=== PATIENT | female | born 1935 | race Asian ===

== ENCOUNTER 2022-11-29 23:24 | Inpatient (IN) | payer MEDICARE, OTHER ==
[~2022-11-29] VITALS: Ht 160 cm; Wt 185.1 kg
[2022-11-30] VITALS (13 sets, daily range): BP systolic 107–156; BP diastolic 58–83
[2022-11-30] MEDS ORDERED: IOHEXOL 350 MG/ML 100ML IJ ONE (00:26)
[2022-11-30 00:32] LABS: Albumin 3.4 g/dL (3.4-5.0); BUN/Creatinine Ratio 31.7; Calcium 8.8 mg/dL (8.5-10.1); Potassium 3.6 mmol/L (3.5-5.1)
[2022-11-30 00:35] LABS: Bilirubin, Total 0.4 mg/dL (0.2-1.0)
[2022-11-30 00:56] LABS: Basophils # (auto) 0 10 ^3/uL (0-0.2); Basophils % (auto) 0.1 % (0.0-2.0); Eosinophils # (auto) 0.2 10 ^3/uL (0-0.8); Eosinophils % (auto) 1.3 % (0.0-7.0); Hematocrit 39.4 % (36.0-46.0); Hemoglobin 13.1 g/dL (12.2-16.2); Lymphocytes # (auto) 1.1 10 ^3/uL (0.4-5.4); Mean Corpuscular Hemoglobin 30.2 pg (28.0-32.0); Mean Corpuscular Hgb Conc. 33.3 g/dL (32.0-36.0); Mean Corpuscular Volume 90.8 fL (80.0-100.0); Monocytes # (auto) 0.3 10 ^3/uL (0-1.3); Monocytes % (auto) 2.5 % (0.0-12.0); Neutrophils # (auto) 11.7 10 ^3/uL (1.6-8.6); Neutrophils % (auto) 88.1 % (37.0-80.0); Nucleated Red Blood Cells % 0.1 %; Red Blood Cells 4.34 10^6/uL (4.0-5.20); Red Cell Distribution Width 14.4 % (11.8-14.3); White Blood Cell 13.3 10^3/uL (4.4-10.8)
[2022-11-30] MEDS ORDERED: AZITHROMYCIN 500MG/ 250ML 250 ML IV ONE (01:15)
[2022-11-30] MEDS ORDERED: SODIUM CHLORIDE 0.9% 500 ML IV ONE (01:15)
[2022-11-30] MEDS ORDERED: cefTRIAXone SOD 1,000 MG VL IV ONE (01:15)
[2022-11-30] MEDS ORDERED: DEXTROSE (50%) 50ML SYRG IV PRN (01:45)
[2022-11-30] MEDS ORDERED: DOCUSATE SOD 100 MG CAP PO PRN (01:45)
[2022-11-30] MEDS ORDERED: ONDANSETRON HCL 4 MG/2 ML VIAL IV PRN (01:45)
[2022-11-30] MEDS ORDERED: MORPHINE SULFATE INJ 2 MG/ml SYRG IV PRN ×2 (01:45→02:30)
[2022-11-30] MEDS ORDERED: HYDROcodone-ACET 5/325MG TAB PO PRN (01:45)
[2022-11-30] MEDS ORDERED: ACETAMINOPHEN 325 MG TAB PO PRN (01:45)
[2022-11-30] MEDS ORDERED: ALBUTEROL SULF 2.5 MG/0.5ML(0.5%) NEB SOLN NEB PRN (01:45)
[2022-11-30] MEDS ORDERED: hydrALAZINE HCL 20 MG/ML VL IV PRN (01:45)
[2022-11-30 02:25] LABS: Urine Bacteria NONE SEEN /hpf (None Seen); Urine Blood Negative /uL (Negative); Urine Specific Gravity 1.023 (1.001-1.035); Urine WBC 17 /hpf (0 - 5)
[2022-11-30] MEDS ORDERED: NITROGLYCERIN 0.4 MG SL TAB SL PRN (02:30)
[2022-11-30] MEDS ORDERED: cefTRIAXone 1GM/50ML D5W 50 ML IV ONE (02:45)
[2022-11-30 06:24] LABS: Basophils # (auto) 0.1 10 ^3/uL (0-0.2); Basophils % (auto) 0.8 % (0.0-2.0); Eosinophils # (auto) 0.1 10 ^3/uL (0-0.8); Eosinophils % (auto) 0.9 % (0.0-7.0); Hemoglobin 11.5 g/dL (12.2-16.2); Lymphocytes # (auto) 1.4 10 ^3/uL (0.4-5.4); Lymphocytes % (auto) 13.9 % (10.0-50.0); Mean Corpuscular Hemoglobin 30.3 pg (28.0-32.0); Mean Corpuscular Volume 86.6 fL (80.0-100.0); Monocytes # (auto) 0.5 10 ^3/uL (0-1.3); Monocytes % (auto) 5.5 % (0.0-12.0); Neutrophils # (auto) 7.7 10 ^3/uL (1.6-8.6); Neutrophils % (auto) 78.9 % (37.0-80.0); Red Blood Cells 3.81 10^6/uL (4.0-5.20); Red Cell Distribution Width 14.2 % (11.8-14.3); White Blood Cell 9.8 10^3/uL (4.4-10.8)
[2022-11-30 06:42] LABS: Potassium 3.6 mmol/L (3.5-5.1)
[2022-11-30 06:56] LABS: Albumin 2.8 g/dL (3.4-5.0); BUN/Creatinine Ratio 33.3; Bilirubin, Total 0.3 mg/dL (0.2-1.0); Calcium 7.9 mg/dL (8.5-10.1); Total Protein 6.7 g/dL (6.4-8.2)
[2022-11-30] MEDS ORDERED: ACCU-CHEK COMFORT CURVE STRIP VI SCH (07:00)
[2022-11-30] MEDS ORDERED: InsuLIN REG 1unit/0.01ml Soln (100units/ml) SC SCH ×2 (07:00→22:00)
[2022-11-30] MEDS ORDERED: HEPARIN SODIUM (PORCINE) 5000 UNITS/ML 1ML VIAL IV ONE (07:45)
[2022-11-30] MEDS ORDERED: HEPARIN DRIP/D5W 100UNITS/ML 250 ML IV SCH ×2 (08:00→08:15)
[2022-11-30] MEDS: cefTRIAXone 1GM/50ML D5W 50 ML IV SCH ×2 (08:19→08:20)
[2022-11-30 08:38] LABS: Partial Thromboplastin Time 31.3 sec (24.6-33.4)
[2022-11-30] MEDS ORDERED: ASPirin-EC 81 mg tab PO ONE (09:45)
[2022-11-30] MEDS: ASPirin 81 mg TAB PO SCH (09:46)
[2022-11-30] MEDS ORDERED: HEPARIN SODIUM (PORCINE) 5000 UNITS/ML 1ML VIAL SC SCH (10:00)
[2022-11-30] MEDS ORDERED: ENOXAPARIN SOD 40 MG/0.4 ML SYRINGE SC SCH (10:00)
[2022-11-30] MEDS ORDERED: SODIUM CHLORIDE 0.9% 1,000 ML IV SCH (10:15)
[2022-11-30 10:43] LABS: Magnesium 2.3 mg/dL (1.6-2.6)
[2022-11-30] MEDS ORDERED: ANGIOMAX 250 MG VIAL IV ONE (12:24)
[2022-11-30] MEDS ORDERED: HEPARIN SODIUM (PORCINE) 5000 UNITS/ML 1ML VIAL ONE (12:24)
[2022-11-30] MEDS ORDERED: VERAPAMIL 2.5MG/ML INJ 2ML VIAL IV ONE (12:25)
[2022-11-30] MEDS ORDERED: MIDAZOLAM HCL 2MG/2ML 2ml VIAL (1mg/ml) ONE (12:25)
[2022-11-30] MEDS ORDERED: fentaNYL CITRATE 100 MCG/2 ML VL ONE (12:25)
[2022-11-30] MEDS ORDERED: SODIUM CHL 0.9% 0 ML ONE (12:25)
[2022-11-30] MEDS ORDERED: LIDOCAINE 2%HCL (LOCAL ANESTH.) INJ 10ml MDV ONE (12:29)
[2022-11-30] MEDS: AZITHROMYCIN 500MG/ 250ML 250 ML IV SCH (14:24)
[2022-11-30] MEDS: SODIUM CHLORIDE 0.9% 1,000 ML IV SCH (14:27)
[2022-11-30] MEDS: IPRATROPIUM BROM 0.5 MG/2.5ML INH SOL NEB SCH (20:01)
[2022-11-30] MEDS: ALBUTEROL SULF 2.5 MG/0.5ML(0.5%) NEB SOLN NEB SCH (20:01)
[2022-11-30] MEDS: ATORVASTATIN 20 MG TAB PO SCH (21:54)
[2022-12-01] MEDS: SODIUM CHLORIDE 0.9% 1,000 ML IV SCH ×2 (02:33→09:14)
[2022-12-01 05:00] VITALS: BP 141/76
[2022-12-01 06:14] LABS: Basophils # (auto) 0 10 ^3/uL (0-0.2); Basophils % (auto) 0.4 % (0.0-2.0); Eosinophils # (auto) 0.2 10 ^3/uL (0-0.8); Eosinophils % (auto) 2.2 % (0.0-7.0); Hematocrit 36.2 % (36.0-46.0); Lymphocytes # (auto) 1.3 10 ^3/uL (0.4-5.4); Lymphocytes % (auto) 17.3 % (10.0-50.0); Mean Corpuscular Hgb Conc. 33.3 g/dL (32.0-36.0); Monocytes # (auto) 0.7 10 ^3/uL (0-1.3); Monocytes % (auto) 9.9 % (0.0-12.0); Neutrophils # (auto) 5.3 10 ^3/uL (1.6-8.6); Neutrophils % (auto) 70.2 % (37.0-80.0); Nucleated Red Blood Cells % 0.1 %; Red Blood Cells 4.02 10^6/uL (4.0-5.20); White Blood Cell 7.5 10^3/uL (4.4-10.8)
[2022-12-01] MEDS: ALBUTEROL SULF 2.5 MG/0.5ML(0.5%) NEB SOLN NEB SCH ×3 (06:21→18:55)
[2022-12-01] MEDS: IPRATROPIUM BROM 0.5 MG/2.5ML INH SOL NEB SCH ×3 (06:21→18:55)
[2022-12-01 06:22] LABS: Calcium 8.3 mg/dL (8.5-10.1); Potassium 3.4 mmol/L (3.5-5.1)
[2022-12-01 06:24] LABS: BUN/Creatinine Ratio 24.3
[2022-12-01 06:34] LABS: Bilirubin, Total 0.4 mg/dL (0.2-1.0); Total Protein 6.4 g/dL (6.4-8.2)
[2022-12-01 08:00] VITALS: BP 129/65
[2022-12-01 09:00] VITALS: BP 129/65
[2022-12-01] MEDS: cefTRIAXone 1GM/50ML D5W 50 ML IV SCH (09:14)
[2022-12-01] MEDS: ASPirin 81 mg TAB PO SCH (09:14)
[2022-12-01] MEDS: AZITHROMYCIN 500MG/ 250ML 250 ML IV SCH (10:07)
[2022-12-01 13:00] VITALS: BP 135/76
[2022-12-01] MEDS ORDERED: POTASSIUM CHL 20 Meq TABLET PO ONE (13:15)
[2022-12-01 16:48] VITALS: BP 150/74
[2022-12-01] MEDS: DOXYCYCLINE 100 MG TAB/CAP PO SCH (21:13)
[2022-12-01] MEDS: ATORVASTATIN 20 MG TAB PO SCH (21:14)
[2022-12-01 21:54] VITALS: BP 144/54
[2022-12-02 05:00] VITALS: BP 141/67
[2022-12-02] MEDS: ALBUTEROL SULF 2.5 MG/0.5ML(0.5%) NEB SOLN NEB SCH ×2 (06:14→11:15)
[2022-12-02] MEDS: IPRATROPIUM BROM 0.5 MG/2.5ML INH SOL NEB SCH ×2 (06:14→11:15)
[2022-12-02 09:00] VITALS: BP 140/89
[2022-12-02] MEDS: DOXYCYCLINE 100 MG TAB/CAP PO SCH (11:30)
[2022-12-02] MEDS: ASPirin 81 mg TAB PO SCH (11:30)
[2022-12-02] MEDS: cefTRIAXone 1GM/50ML D5W 50 ML IV SCH (11:30)
[2022-12-02] MEDS ORDERED: ALBUAER3 IN (11:52)
[2022-12-02] MEDS ORDERED: BUDE1AER4 IN (11:52)
[2022-12-02] MEDS ORDERED: DOX100T PO (11:53)
[2022-12-02 13:16] VITALS: BP 140/89
[2022-12-02 13:32] VITALS: BP 149/89
== END 2022-12-02 16:59 | disposition home or self-care (01) | DRG 177 ==
LOC: EDBD 23:24 → ER 23:31 → TELE 11-30 02:19 → TELE-WESTW 11-30 16:45
PROVIDERS: ADMIT Nurse Practitioner Family; ATTEND Nurse Practitioner Acute Care
PROC: 4A023N7 Measurement of Cardiac Sampling and Pressure, Left Heart, Percutaneous Approach (ICD-10-PCS; principal; 2022-11-30)
PROC: B211YZZ Fluoroscopy of Multiple Coronary Arteries using Other Contrast (ICD-10-PCS; 2022-11-30)
PROC: B215YZZ Fluoroscopy of Left Heart using Other Contrast (ICD-10-PCS; 2022-11-30)
PROC: 4A033BC Measurement of Arterial Pressure, Coronary, Percutaneous Approach (ICD-10-PCS; 2022-11-30)
DX: J15.6 Pneumonia due to other Gram-negative bacteria (principal); I21.A1 Myocardial infarction type 2; J96.01 Acute respiratory failure with hypoxia; J44.1 Chronic obstructive pulmonary disease with (acute) exacerbation; E66.9 Obesity, unspecified; E78.5 Hyperlipidemia, unspecified; R00.0 Tachycardia, unspecified; E11.65 Type 2 diabetes mellitus with hyperglycemia; Z20.822 Contact with and (suspected) exposure to COVID-19; E86.0 Dehydration; I10 Essential (primary) hypertension; Z68.31 Body mass index [BMI] 31.0-31.9, adult; Z79.899 Other long term (current) drug therapy; Z87.891 Personal history of nicotine dependence; Z99.81 Dependence on supplemental oxygen
CPT/HCPCS: 36415; 71045; 71275; 80053; 80061; 81001; 83036; 83615; 83735; 83880; 84443; 84484; 85025; 85610; 85730; 87426; 93005; 93306; 93458; 93571; 94640; 96365; 96375; 99152; 99153; G0378; J0696; J2001; J2250

== ENCOUNTER 2023-07-08 15:41 | Inpatient (IN) | payer MEDICARE, OTHER ==
[~2023-07-08] VITALS: Ht 160 cm; Wt 82.0 kg
[~2023-07-08 15:41] MED LIST: ALBUAER3 IN; BUDE1AER4 IN; DOX100T PO
[2023-07-08] MEDS ORDERED: ACETAMINOPHEN 325 MG TAB PO ONE (16:00)
[2023-07-08] MEDS ORDERED: IPRATROPIUM BROM 0.5 MG/2.5ML INH SOL NEB ONE (16:00)
[2023-07-08] MEDS ORDERED: ALBUTEROL SULF 2.5 MG/0.5ML(0.5%) NEB SOLN NEB ONE (16:00)
[2023-07-08] MEDS ORDERED: methylPREDNISolone SOD SUCC 125 MG/2 ML VL IV ONE (16:00)
[2023-07-08 16:16] LABS: Basophils # (auto) 0.1 10 ^3/uL (0-0.2); Basophils % (auto) 0.4 % (0.0-2.0); Eosinophils # (auto) 0.4 10 ^3/uL (0-0.8); Eosinophils % (auto) 2.7 % (0.0-7.0); Hematocrit 39.8 % (36.0-46.0); Hemoglobin 13.2 g/dL (12.2-16.2); Lymphocytes # (auto) 1.2 10 ^3/uL (0.4-5.4); Lymphocytes % (auto) 8.1 % (10.0-50.0); Mean Corpuscular Hgb Conc. 33.3 g/dL (32.0-36.0); Mean Corpuscular Volume 90.2 fL (80.0-100.0); Monocytes # (auto) 0.7 10 ^3/uL (0-1.3); Monocytes % (auto) 4.5 % (0.0-12.0); Neutrophils # (auto) 12.5 10 ^3/uL (1.6-8.6); Neutrophils % (auto) 84.3 % (37.0-80.0); Red Blood Cells 4.41 10^6/uL (4.0-5.20); Red Cell Distribution Width 13.9 % (11.8-14.3); White Blood Cell 14.8 10^3/uL (4.4-10.8)
[2023-07-08 16:37] LABS: Albumin 4.3 g/dL (3.2-4.8); Alkaline Phosphatase 106 U/L (46-116); Anion Gap 8 (5-15); Aspartate Aminotransferase < 8 U/L (13-40); BUN/Creatinine Ratio 17.1 (10.0-20.0); Bilirubin, Total 0.7 mg/dL (0.2-1.0); Blood Urea Nitrogen 14 mg/dL (9-23); Calcium 8.9 mg/dL (8.7-10.4); Carbon Dioxide 26 mmol/L (20-30); Chloride 105 mmol/L (98-107); Glucose 114 mg/dL (74-106); Magnesium 1.8 mg/dL (1.6-2.6); Potassium 3.7 mmol/L (3.5-5.1); Sodium 139 mmol/L (136-145)
[2023-07-08 16:38] LABS: Alanine Aminotransferase < 9 U/L (7-40); Total Protein 7.6 g/dL (5.7-8.2)
[2023-07-08] MEDS ORDERED: SODIUM CHLORIDE 0.9% 1,000 ML IV ONE (17:00)
[2023-07-08] MEDS ORDERED: cefTRIAXone 1GM/50ML D5W 50 ML IV ONE (17:15)
[2023-07-08 17:18] VITALS: PULSE 104; RESP 22; O2SAT 90
[2023-07-08] MEDS ORDERED: IOHEXOL 350 MG/ML 100ML IJ ONE (18:16)
[2023-07-08 18:32] LABS: Urine Bacteria NONE SEEN /hpf (None Seen); Urine Blood Negative /uL (Negative); Urine Clarity Clear (Clear); Urine Color Colorless (Yellow); Urine Protein, UAD 1+ (Negative); Urine Specific Gravity 1.013 (1.001-1.035); Urine Urobilinogen Normal (Negative); Urine WBC 2 /hpf (0 - 5); Urine pH 7.5 (5.0-8.0)
[2023-07-08] MEDS ORDERED: METF-370 PO (18:43)
[2023-07-08] MEDS ORDERED: NISO17TA PO (18:43)
[2023-07-08] MEDS ORDERED: TIOT1AER2 INH (18:43)
[2023-07-08] MEDS ORDERED: TELM1TAB35 PO (18:43)
[2023-07-08] MEDS ORDERED: SIMV40TA18 PO (18:43)
[2023-07-08] MEDS ORDERED: guaiFENesin 200 MG/10 ML UD GT PRN (18:45)
[2023-07-08] MEDS ORDERED: MORPHINE SULFATE INJ 2 MG/ml SYRG IV PRN (18:45)
[2023-07-08] MEDS ORDERED: ACETAMINOPHEN 325 MG TAB PO PRN (18:45)
[2023-07-08] MEDS ORDERED: DEXTROSE (50%) 50ML SYRG IV PRN (18:45)
[2023-07-08] MEDS ORDERED: NITROGLYCERIN 0.4 MG SL TAB SL PRN (18:45)
[2023-07-08] MEDS ORDERED: ONDANSETRON HCL 4 MG/2 ML VIAL IV PRN (18:45)
[2023-07-08 18:49] VITALS: BP 165/85; PULSE 104; RESP 20; TEMP 99.3; O2SAT 94
[2023-07-08 19:04] LABS: COVID19 ANTIGEN SOFIA FIA NEGATIVE (NEGATIVE); Rapid Influenza A Negative (Negative); Rapid Influenza B Negative (Negative)
[2023-07-08 19:40] VITALS: PULSE 94; RESP 16; O2SAT 94
[2023-07-08] MEDS: ACCU-CHEK COMFORT CURVE STRIP VI SCH (21:38)
[2023-07-08] MEDS: InsuLIN REG 1unit/0.01ml Soln (100units/ml) SC SCH (22:31)
[2023-07-08] MEDS: ATORVASTATIN 20 MG TAB PO SCH (22:32)
[2023-07-08] MEDS: methylPREDNISolone SOD SUCC 40 MG/ML VL IV SCH (22:32)
[2023-07-09] VITALS (13 sets, daily range): BP systolic 150; BP diastolic 71; PULSE 80–91; RESP 16–20; TEMP 98.4; O2SAT 92–99
[2023-07-09] MEDS: LEVALBUTEROL HCL 1.25 MG/3 ML NEB NEB SCH ×4 (00:39→18:17)
[2023-07-09 06:07] LABS: Basophils # (auto) 0 10 ^3/uL (0-0.2); Basophils % (auto) 0.2 % (0.0-2.0); Eosinophils # (auto) 0 10 ^3/uL (0-0.8); Hematocrit 36.5 % (36.0-46.0); Hemoglobin 12.3 g/dL (12.2-16.2); Mean Corpuscular Hemoglobin 30.7 pg (28.0-32.0); Mean Corpuscular Hgb Conc. 33.8 g/dL (32.0-36.0); Mean Corpuscular Volume 90.8 fL (80.0-100.0); Monocytes # (auto) 0.1 10 ^3/uL (0-1.3); Monocytes % (auto) 0.7 % (0.0-12.0); Neutrophils # (auto) 8.3 10 ^3/uL (1.6-8.6); Neutrophils % (auto) 88.1 % (37.0-80.0); Nucleated Red Blood Cells % 0.1 %; Red Blood Cells 4.02 10^6/uL (4.0-5.20); White Blood Cell 9.5 10^3/uL (4.4-10.8)
[2023-07-09 06:10] LABS: Albumin 3.9 g/dL (3.2-4.8); Alkaline Phosphatase 87 U/L (46-116); Anion Gap 11 (5-15); Aspartate Aminotransferase < 8 U/L (13-40); BUN/Creatinine Ratio 17.4 (10.0-20.0); Bilirubin, Total 0.4 mg/dL (0.2-1.0); Blood Urea Nitrogen 15 mg/dL (9-23); Calcium 8.5 mg/dL (8.5-10.1); Carbon Dioxide 24 mmol/L (20-30); Chloride 106 mmol/L (98-107); Glucose 168 mg/dL (74-106); Potassium 3.6 mmol/L (3.5-5.1); Sodium 141 mmol/L (136-145); Total Protein 7.1 g/dL (5.7-8.2)
[2023-07-09 06:14] LABS: Alanine Aminotransferase < 9 U/L (7-40)
[2023-07-09] MEDS: IPRATROPIUM BROM 0.5 MG/2.5ML INH SOL NEB SCH ×3 (06:36→18:17)
[2023-07-09] MEDS: ACCU-CHEK COMFORT CURVE STRIP VI SCH ×4 (07:06→22:44)
[2023-07-09] MEDS: InsuLIN REG 1unit/0.01ml Soln (100units/ml) SC SCH ×4 (07:06→22:39)
[2023-07-09] MEDS: cefTRIAXone 1GM/50ML D5W 50 ML IV SCH (08:50)
[2023-07-09] MEDS: NISOLDIPINE 17 MG PO SCH (09:42)
[2023-07-09] MEDS: PANTOPRAZOLE 40 MG TAB PO SCH (09:46)
[2023-07-09] MEDS: methylPREDNISolone SOD SUCC 40 MG/ML VL IV SCH ×2 (09:46→22:44)
[2023-07-09] MEDS: AZITHROMYCIN 500MG/ 250ML 250 ML IV SCH (09:46)
[2023-07-09] MEDS: LOSARTAN POTASSIUM 50 MG TAB PO SCH (09:54)
[2023-07-09] MEDS ORDERED: LOSARTAN POTASSIUM 50 MG TAB PO SCH (10:00)
[2023-07-09] MEDS: ATORVASTATIN 20 MG TAB PO SCH (23:03)
[2023-07-10] VITALS (13 sets, daily range): BP systolic 117–175; BP diastolic 54–92; PULSE 62–91; RESP 16–20; TEMP 97.5–98.2; O2SAT 91–100
[2023-07-10] MEDS: hydrALAZINE HCL 20 MG/ML VL IV PRN ×2 (05:34→12:18)
[2023-07-10] MEDS: InsuLIN REG 1unit/0.01ml Soln (100units/ml) SC SCH ×4 (06:16→22:38)
[2023-07-10] MEDS: DOCUSATE SOD 100 MG CAP PO PRN (06:30)
[2023-07-10] MEDS: ACCU-CHEK COMFORT CURVE STRIP VI SCH ×4 (06:43→22:51)
[2023-07-10] MEDS: IPRATROPIUM BROM 0.5 MG/2.5ML INH SOL NEB SCH ×3 (06:53→18:53)
[2023-07-10] MEDS: LEVALBUTEROL HCL 1.25 MG/3 ML NEB NEB SCH ×3 (06:54→18:54)
[2023-07-10 07:20] LABS: Basophils # (auto) 0 10 ^3/uL (0-0.2); Eosinophils # (auto) 0 10 ^3/uL (0-0.8); Hematocrit 38.3 % (36.0-46.0); Hemoglobin 12.4 g/dL (12.2-16.2); Lymphocytes # (auto) 1.2 10 ^3/uL (0.4-5.4); Lymphocytes % (auto) 7.6 % (10.0-50.0); Mean Corpuscular Hemoglobin 29.9 pg (28.0-32.0); Mean Corpuscular Hgb Conc. 32.3 g/dL (32.0-36.0); Mean Corpuscular Volume 92.6 fL (80.0-100.0); Monocytes # (auto) 0.2 10 ^3/uL (0-1.3); Monocytes % (auto) 1.5 % (0.0-12.0); Neutrophils # (auto) 14.2 10 ^3/uL (1.6-8.6); Neutrophils % (auto) 90.9 % (37.0-80.0); Red Blood Cells 4.13 10^6/uL (4.0-5.20); Red Cell Distribution Width 14.1 % (11.8-14.3); White Blood Cell 15.6 10^3/uL (4.4-10.8)
[2023-07-10 07:43] LABS: Anion Gap 9 (5-15); Carbon Dioxide 23 mmol/L (20-30); Chloride 108 mmol/L (98-107); Potassium 4.1 mmol/L (3.5-5.1); Sodium 140 mmol/L (136-145)
[2023-07-10 07:44] LABS: Calcium 8.8 mg/dL (8.5-10.1)
[2023-07-10 07:49] LABS: BUN/Creatinine Ratio 19.1 (10.0-20.0); Blood Urea Nitrogen 17 mg/dL (9-23); Glucose 183 mg/dL (74-106)
[2023-07-10] MEDS: methylPREDNISolone SOD SUCC 40 MG/ML VL IV SCH ×2 (09:33→22:45)
[2023-07-10] MEDS: cefTRIAXone 1GM/50ML D5W 50 ML IV SCH (09:33)
[2023-07-10] MEDS: ENOXAPARIN SOD 40 MG/0.4 ML SYRINGE SC SCH (09:33)
[2023-07-10] MEDS: LOSARTAN POTASSIUM 50 MG TAB PO SCH (09:34)
[2023-07-10] MEDS: PANTOPRAZOLE 40 MG TAB PO SCH (09:34)
[2023-07-10] MEDS: AZITHROMYCIN 500MG/ 250ML 250 ML IV SCH (10:56)
[2023-07-10] MEDS ORDERED: levoFLOXacin 500 MG TAB PO ONE (14:45)
[2023-07-10] MEDS ORDERED: IOHEXOL 300 MG/ML 100ML BOTTLE IJ ONE (14:50)
[2023-07-10] MEDS: NISOLDIPINE 17 MG PO SCH (18:27)
[2023-07-10] MEDS: ATORVASTATIN 20 MG TAB PO SCH (22:42)
[2023-07-11] VITALS (14 sets, daily range): BP systolic 136–173; BP diastolic 66–88; PULSE 72–100; RESP 16–20; TEMP 98.1–98.8; O2SAT 90–100
[2023-07-11] MEDS: InsuLIN REG 1unit/0.01ml Soln (100units/ml) SC SCH ×4 (06:28→22:29)
[2023-07-11] MEDS: ACCU-CHEK COMFORT CURVE STRIP VI SCH ×4 (06:34→22:20)
[2023-07-11] MEDS: IPRATROPIUM BROM 0.5 MG/2.5ML INH SOL NEB SCH ×3 (08:08→18:54)
[2023-07-11] MEDS: LEVALBUTEROL HCL 1.25 MG/3 ML NEB NEB SCH ×3 (08:08→18:54)
[2023-07-11] MEDS: NISOLDIPINE 17 MG PO SCH (10:00)
[2023-07-11] MEDS: methylPREDNISolone SOD SUCC 40 MG/ML VL IV SCH ×2 (10:36→22:20)
[2023-07-11] MEDS: ENOXAPARIN SOD 40 MG/0.4 ML SYRINGE SC SCH (10:36)
[2023-07-11] MEDS: PANTOPRAZOLE 40 MG TAB PO SCH (10:37)
[2023-07-11] MEDS: levoFLOXacin 250 MG TAB PO SCH (10:37)
[2023-07-11] MEDS: LOSARTAN POTASSIUM 50 MG TAB PO SCH (10:38)
[2023-07-11] MEDS: guaiFENesin 200 MG/10 ML UD PO PRN ×2 (11:38→20:37)
[2023-07-11 14:01] LABS: Base Excess -1.1 mmol/L (-2.0-2.0)
[2023-07-11] MEDS: DOCUSATE SOD 100 MG CAP PO PRN (20:37)
[2023-07-11] MEDS: ATORVASTATIN 20 MG TAB PO SCH (22:20)
[2023-07-11] MEDS: hydrALAZINE HCL 20 MG/ML VL IV PRN (23:35)
[2023-07-12] VITALS (15 sets, daily range): BP systolic 124–165; BP diastolic 80–96; PULSE 80–111; RESP 14–20; TEMP 97.8–98.3; O2SAT 90–100
[2023-07-12] MEDS: guaiFENesin 200 MG/10 ML UD PO PRN ×2 (03:27→10:45)
[2023-07-12] MEDS: LEVALBUTEROL HCL 1.25 MG/3 ML NEB NEB SCH ×3 (06:04→18:17)
[2023-07-12] MEDS: IPRATROPIUM BROM 0.5 MG/2.5ML INH SOL NEB SCH ×3 (06:04→18:17)
[2023-07-12] MEDS: ACCU-CHEK COMFORT CURVE STRIP VI SCH ×4 (06:39→22:08)
[2023-07-12] MEDS: InsuLIN REG 1unit/0.01ml Soln (100units/ml) SC SCH ×4 (06:41→22:11)
[2023-07-12 08:48] LABS: INR 0.93 (0.9-1.15); Partial Thromboplastin Time 20.2 SEC (24.5-34.5); Prothrombin Time 9.8 sec (9.3-11.8)
[2023-07-12 09:16] LABS: Hepatitis B Surface Antigen Negative (Negative)
[2023-07-12 09:38] LABS: Hepatitis C Antibody Negative (Negative)
[2023-07-12] MEDS: ENOXAPARIN SOD 40 MG/0.4 ML SYRINGE SC SCH (10:00)
[2023-07-12] MEDS: NISOLDIPINE 17 MG PO SCH (10:00)
[2023-07-12] MEDS: methylPREDNISolone SOD SUCC 40 MG/ML VL IV SCH ×2 (10:42→22:09)
[2023-07-12] MEDS: levoFLOXacin 250 MG TAB PO SCH (10:44)
[2023-07-12] MEDS: hydrALAZINE HCL 20 MG/ML VL IV PRN (10:44)
[2023-07-12] MEDS: LOSARTAN POTASSIUM 50 MG TAB PO SCH (10:44)
[2023-07-12] MEDS: PANTOPRAZOLE 40 MG TAB PO SCH (10:44)
[2023-07-12] MEDS ORDERED: LIDOCAINE 2%HCL (LOCAL ANESTH.) INJ 10ml MDV ONE (10:51)
[2023-07-12] MEDS ORDERED: MIDAZOLAM HCL 2MG/2ML 2ml VIAL (1mg/ml) ONE (10:56)
[2023-07-12] MEDS ORDERED: fentaNYL CITRATE 100 MCG/2 ML VL ONE (10:56)
[2023-07-12] MEDS ORDERED: FLUMAZENIL 0.1 MG/ML INJ 10ML MDV IV ONE (10:56)
[2023-07-12] MEDS ORDERED: NALOXONE HCL 1MG/ML 2ML SYRINGE ONE (10:56)
[2023-07-12] MEDS ORDERED: guaiFENesin-DM 100/10mg/5ml SYR PO SCH (14:00)
[2023-07-12] MEDS: DOCUSATE SOD 100 MG CAP PO PRN (22:07)
[2023-07-12] MEDS: ATORVASTATIN 20 MG TAB PO SCH (22:07)
[2023-07-13] VITALS (9 sets, daily range): BP systolic 125–163; BP diastolic 75–88; PULSE 78–103; RESP 16–20; TEMP 97.4–98.2; O2SAT 91–98
[2023-07-13] MEDS: ACCU-CHEK COMFORT CURVE STRIP VI SCH ×2 (05:56→11:30)
[2023-07-13] MEDS: InsuLIN REG 1unit/0.01ml Soln (100units/ml) SC SCH ×2 (05:57→11:38)
[2023-07-13] MEDS: hydrALAZINE HCL 20 MG/ML VL IV PRN (06:06)
[2023-07-13 06:16] LABS: Chloride 107 mmol/L (98-107); Potassium 4.1 mmol/L (3.5-5.1); Sodium 139 mmol/L (136-145)
[2023-07-13 06:17] LABS: Anion Gap 9 (5-15); Carbon Dioxide 23 mmol/L (20-30)
[2023-07-13 06:18] LABS: Calcium 8.7 mg/dL (8.7-10.4)
[2023-07-13 06:22] LABS: Glucose 177 mg/dL (74-106)
[2023-07-13 06:23] LABS: BUN/Creatinine Ratio 23.5 (10.0-20.0); Blood Urea Nitrogen 24 mg/dL (9-23)
[2023-07-13 06:38] LABS: Basophils # (auto) 0 10 ^3/uL (0-0.2); Basophils % (auto) 0.1 % (0.0-2.0); Eosinophils # (auto) 0 10 ^3/uL (0-0.8); Hematocrit 40.5 % (36.0-46.0); Hemoglobin 13.1 g/dL (12.2-16.2); Lymphocytes # (auto) 1.5 10 ^3/uL (0.4-5.4); Lymphocytes % (auto) 12.7 % (10.0-50.0); Mean Corpuscular Hemoglobin 29.6 pg (28.0-32.0); Mean Corpuscular Hgb Conc. 32.4 g/dL (32.0-36.0); Mean Corpuscular Volume 91.3 fL (80.0-100.0); Monocytes # (auto) 0.4 10 ^3/uL (0-1.3); Monocytes % (auto) 3.7 % (0.0-12.0); Neutrophils # (auto) 9.7 10 ^3/uL (1.6-8.6); Neutrophils % (auto) 83.5 % (37.0-80.0); Red Blood Cells 4.44 10^6/uL (4.0-5.20); Red Cell Distribution Width 14.1 % (11.8-14.3); White Blood Cell 11.6 10^3/uL (4.4-10.8)
[2023-07-13] MEDS: LEVALBUTEROL HCL 1.25 MG/3 ML NEB NEB SCH ×2 (07:33→12:16)
[2023-07-13] MEDS: IPRATROPIUM BROM 0.5 MG/2.5ML INH SOL NEB SCH ×2 (07:33→12:16)
[2023-07-13] MEDS: PANTOPRAZOLE 40 MG TAB PO SCH (09:31)
[2023-07-13] MEDS: methylPREDNISolone SOD SUCC 40 MG/ML VL IV SCH (09:31)
[2023-07-13] MEDS: ENOXAPARIN SOD 40 MG/0.4 ML SYRINGE SC SCH (09:31)
[2023-07-13] MEDS: levoFLOXacin 250 MG TAB PO SCH (09:31)
[2023-07-13] MEDS: LOSARTAN POTASSIUM 50 MG TAB PO SCH (09:31)
[2023-07-13] MEDS: NISOLDIPINE 17 MG PO SCH (09:35)
[2023-07-13] MEDS: guaiFENesin 200 MG/10 ML UD PO PRN (11:36)
[2023-07-13] MEDS ORDERED: LEVO750T8 PO (12:55)
== END 2023-07-13 14:00 | disposition home or self-care (01) | DRG 177 ==
LOC: EDBD 15:41 → ER 15:41 → TELE 18:40 → TELE-CENTR 07-09 17:35
PROVIDERS: ADMIT Nurse Practitioner Family; ATTEND Internal Medicine Pulmonary Disease
PROC: 0BBF3ZX Excision of Right Lower Lung Lobe, Percutaneous Approach, Diagnostic (ICD-10-PCS; principal; 2023-07-12)
DX: J15.69 Pneumonia due to other Gram-negative bacteria (principal); J96.01 Acute respiratory failure with hypoxia; J44.1 Chronic obstructive pulmonary disease with (acute) exacerbation; J98.11 Atelectasis; J44.0 Chronic obstructive pulmonary disease with (acute) lower respiratory infection; J15.9 Unspecified bacterial pneumonia; I10 Essential (primary) hypertension; E11.9 Type 2 diabetes mellitus without complications; E78.5 Hyperlipidemia, unspecified; Z20.822 Contact with and (suspected) exposure to COVID-19; D72.829 Elevated white blood cell count, unspecified; Z87.891 Personal history of nicotine dependence; Z88.1 Allergy status to other antibiotic agents; Z82.0 Family history of epilepsy and other diseases of the nervous system; Z80.6 Family history of leukemia
CPT/HCPCS: 10005; 36415; 36600; 71045; 71250; 71275; 74177; 77012; 80048; 80053; 81001; 82805; 82962; 83605; 83735; 83880; 84484; 85025; 85379; 85610; 85730; 86803; 87040; 87081; 87340; 87426; 87804; 93005; 93971; 94640; 96365; 96375; G0378; J0696; J1815; J2001; J2250

== ENCOUNTER 2023-09-04 17:43 | Emergency (ER) | payer MEDICARE, OTHER ==
[~2023-09-04] VITALS: Ht 157.5 cm; Wt 68.0 kg
[~2023-09-04 17:43] MED LIST changes: -DOX100T PO; +LEVO750T8 PO; +METF-370 PO; +NISO17TA PO; +SIMV40TA18 PO; +TELM1TAB35 PO; +TIOT1AER2 INH
[2023-09-04] MEDS ORDERED: METOPROLOL TARTRATE 25 MG TAB PO ONE (18:00)
[2023-09-04] MEDS ORDERED: MORPHINE SULFATE INJ 2 MG/ml SYRG IM ONE (18:00)
[2023-09-04] MEDS ORDERED: ONDANSETRON ODT 4 MG TAB PO ONE (18:00)
[2023-09-04 18:35] LABS: Basophils # (auto) 0.1 10 ^3/uL (0-0.2); Basophils % (auto) 0.4 % (0.0-2.0); Eosinophils # (auto) 0.2 10 ^3/uL (0-0.8); Eosinophils % (auto) 1.1 % (0.0-7.0); Hematocrit 42.9 % (36.0-46.0); Hemoglobin 13.7 g/dL (12.2-16.2); Lymphocytes # (auto) 2.3 10 ^3/uL (0.4-5.4); Lymphocytes % (auto) 16.3 % (10.0-50.0); Mean Corpuscular Hemoglobin 29.1 pg (28.0-32.0); Mean Corpuscular Hgb Conc. 31.8 g/dL (32.0-36.0); Mean Corpuscular Volume 91.4 fL (80.0-100.0); Monocytes # (auto) 0.6 10 ^3/uL (0-1.3); Monocytes % (auto) 4.6 % (0.0-12.0); Neutrophils # (auto) 10.9 10 ^3/uL (1.6-8.6); Neutrophils % (auto) 77.6 % (37.0-80.0); Nucleated Red Blood Cells % 0.1 %; Red Cell Distribution Width 13.8 % (11.8-14.3); White Blood Cell 14.1 10^3/uL (4.4-10.8)
[2023-09-04] MEDS ORDERED: METOPROLOL TARTRATE 25 MG TAB ONE (18:44)
[2023-09-04] MEDS ORDERED: ONDANSETRON ODT 4 MG TAB ONE (18:45)
[2023-09-04] MEDS ORDERED: MORPHINE SULFATE INJ 2 MG/ml SYRG ONE (18:46)
[2023-09-04 18:56] LABS: Albumin 4.7 g/dL (3.2-4.8); Alkaline Phosphatase 91 U/L (46-116); Anion Gap 9 (5-15); Aspartate Aminotransferase 16 U/L (13-40); BUN/Creatinine Ratio 14.1 (10.0-20.0); Blood Urea Nitrogen 13 mg/dL (9-23); Calcium 9.3 mg/dL (8.7-10.4); Carbon Dioxide 25 mmol/L (20-30); Chloride 106 mmol/L (98-107); Glucose 154 mg/dL (74-106); Potassium 4.2 mmol/L (3.5-5.1); Sodium 140 mmol/L (136-145)
[2023-09-04 18:57] LABS: Bilirubin, Total 0.6 mg/dL (0.2-1.0); Total Protein 8.4 g/dL (5.7-8.2)
[2023-09-04 19:01] LABS: Alanine Aminotransferase < 9 U/L (7-40)
[2023-09-05] MEDS ORDERED: HYDROcodone-ACET 10/325MG TAB PO ONE (01:45)
[2023-09-05 02:48] LABS: Urine Bacteria NONE SEEN /hpf (None Seen); Urine Blood Negative /uL (Negative); Urine Clarity HAZY (Clear); Urine Color Yellow (Yellow); Urine Hyaline Cast FEW /lpf (0 - 2); Urine Protein, UAD 2+ (Negative); Urine Specific Gravity 1.016 (1.001-1.035); Urine Urobilinogen Normal (Negative); Urine WBC 5 /hpf (0 - 5)
[2023-09-05] MEDS ORDERED: IBUP1TAB5 PO (03:01)
[2023-09-05 03:58] VITALS: BP 166/87; PULSE 79; RESP 17; TEMP 97.8; O2SAT 94
[2023-09-05] MEDS ORDERED: ONDANSETRON ODT 4 MG TAB PO ONE (04:00)
== END 2023-09-05 04:00 | disposition home or self-care (01) ==
LOC: ER 17:43 → EDBD 17:43 → ER 09-05 04:00
DX: M54.9 Dorsalgia, unspecified (principal); R07.89 Other chest pain; Z88.1 Allergy status to other antibiotic agents
CPT/HCPCS: 36415; 71045; 72128; 80053; 81001; 83690; 84484; 85025; 93005; 96372; 99285; J2270; Q0162

== ENCOUNTER 2023-09-13 18:41 | Inpatient (IN) | payer MEDICARE, OTHER ==
[~2023-09-13] VITALS: Ht 162.6 cm; Wt 78.0 kg
[~2023-09-13 18:41] MED LIST changes: +IBUP1TAB5 PO
[2023-09-13] MEDS ORDERED: IPRATROPIUM BROM 0.5 MG/2.5ML INH SOL NEB ONE (20:00)
[2023-09-13] MEDS ORDERED: ALBUTEROL SULF 2.5 MG/0.5ML(0.5%) NEB SOLN NEB ONE (20:00)
[2023-09-13] MEDS ORDERED: ACETAMINOPHEN 325 MG TAB PO ONE (20:00)
[2023-09-13 20:19] LABS: Basophils # (auto) 0 10 ^3/uL (0-0.2); Basophils % (auto) 0.3 % (0.0-2.0); Eosinophils # (auto) 0.3 10 ^3/uL (0-0.8); Eosinophils % (auto) 2.8 % (0.0-7.0); Hematocrit 37.5 % (36.0-46.0); Hemoglobin 12.2 g/dL (12.2-16.2); Lymphocytes # (auto) 1.1 10 ^3/uL (0.4-5.4); Lymphocytes % (auto) 10.5 % (10.0-50.0); Mean Corpuscular Hemoglobin 29.5 pg (28.0-32.0); Mean Corpuscular Hgb Conc. 32.5 g/dL (32.0-36.0); Mean Corpuscular Volume 90.5 fL (80.0-100.0); Monocytes # (auto) 0.9 10 ^3/uL (0-1.3); Monocytes % (auto) 8.6 % (0.0-12.0); Neutrophils # (auto) 7.9 10 ^3/uL (1.6-8.6); Neutrophils % (auto) 77.8 % (37.0-80.0); Red Blood Cells 4.15 10^6/uL (4.0-5.20); Red Cell Distribution Width 14.1 % (11.8-14.3); White Blood Cell 10.2 10^3/uL (4.4-10.8)
[2023-09-13 20:37] LABS: Alanine Aminotransferase 51 U/L (7-40); Albumin 4.1 g/dL (3.2-4.8); Alkaline Phosphatase 277 U/L (46-116); Anion Gap 10 (5-15); Aspartate Aminotransferase 38 U/L (13-40); BUN/Creatinine Ratio 26.3 (10.0-20.0); Blood Urea Nitrogen 21 mg/dL (9-23); Calcium 8.6 mg/dL (8.7-10.4); Carbon Dioxide 21 mmol/L (20-30); Chloride 108 mmol/L (98-107); Glucose 122 mg/dL (74-106); Magnesium 1.8 mg/dL (1.6-2.6); Potassium 3.6 mmol/L (3.5-5.1); Sodium 139 mmol/L (136-145)
[2023-09-13 20:38] LABS: Bilirubin, Total 0.5 mg/dL (0.2-1.0); Total Protein 7.3 g/dL (5.7-8.2)
[2023-09-13 20:39] LABS: INR 0.95 (0.9-1.15); Partial Thromboplastin Time 32.3 SEC (24.5-34.5)
[2023-09-13 22:22] LABS: Urine Bacteria FEW /hpf (None Seen); Urine Blood Negative /uL (Negative); Urine Clarity HAZY (Clear); Urine Color Colorless (Yellow); Urine Mucus FEW (None Seen); Urine Protein, UAD 1+ (Negative); Urine Specific Gravity 1.015 (1.001-1.035); Urine Urobilinogen Normal (Negative); Urine WBC 74 /hpf (0 - 5); Urine pH 6.5 (5.0-8.0)
[2023-09-14] VITALS (8 sets, daily range): BP systolic 171; BP diastolic 70; PULSE 91–108; RESP 14–22; TEMP 98.2; O2SAT 92–100
[2023-09-14] MEDS ORDERED: AZITHROMYCIN 500MG/ 250ML 250 ML IV ONE (01:45)
[2023-09-14] MEDS ORDERED: cefTRIAXone 1GM/50ML D5W 50 ML IV ONE (01:45)
[2023-09-14] MEDS ORDERED: HYDROcodone-ACET 5/325MG TAB PO PRN (03:15)
[2023-09-14] MEDS ORDERED: DOCUSATE SOD 100 MG CAP PO PRN (03:15)
[2023-09-14] MEDS ORDERED: ACETAMINOPHEN 325 MG TAB PO PRN (03:15)
[2023-09-14] MEDS ORDERED: hydrALAZINE HCL 20 MG/ML VL IV PRN (03:15)
[2023-09-14] MEDS ORDERED: ONDANSETRON HCL 4 MG/2 ML VIAL IV PRN (03:15)
[2023-09-14] MEDS ORDERED: IOHEXOL 350 MG/ML 100ML IJ ONE (03:47)
[2023-09-14] MEDS ORDERED: SODIUM CHLOR 0.9% PF (SALINE LOCK) 10ML VIAL/SYR IV SCH (06:00)
[2023-09-14] MEDS: IPRATROPIUM BROM 0.5 MG/2.5ML INH SOL NEB SCH ×2 (06:31→12:00)
[2023-09-14] MEDS: ALBUTEROL SULF 2.5 MG/0.5ML(0.5%) NEB SOLN NEB SCH ×2 (06:31→12:00)
[2023-09-14] MEDS ORDERED: ENOXAPARIN SOD 40 MG/0.4 ML SYRINGE SC SCH (10:00)
[2023-09-14] MEDS ORDERED: IPRATROPIUM BROM 0.5 MG/2.5ML INH SOL NEB SCH (18:00)
[2023-09-14] MEDS ORDERED: ALBUTEROL SULF 2.5 MG/0.5ML(0.5%) NEB SOLN NEB SCH (18:00)
[2023-09-15] MEDS ORDERED: cefTRIAXone 1GM/50ML D5W 50 ML IV SCH (10:00)
[2023-09-15] MEDS ORDERED: AZITHROMYCIN 500MG/ 250ML 250 ML IV SCH (10:00)
[2023-10-05] MEDS ORDERED: ATOR20TA50 PO (23:23)
[2023-10-05] MEDS ORDERED: AMLO1TAB22 PO (23:25)
[2023-10-05] MEDS ORDERED: HYDR-4296 PO (23:26)
[2023-10-06] MEDS ORDERED: HYDR25TA4 PO (05:06)
[2023-10-06] MEDS ORDERED: CARV12.544 PO (05:07)
[2023-10-08] MEDS ORDERED: PRED20TA2 PO (11:55)
[2023-10-08] MEDS ORDERED: DOXY-447 PO (11:55)
== END 2023-09-14 08:30 | disposition short-term general hospital (02) | DRG 299 ==
LOC: ER 18:41 → OVERFLOW 09-14 03:02
PROVIDERS: ADMIT Internal Medicine; ATTEND Internal Medicine
DX: I71.03 Dissection of thoracoabdominal aorta (principal); J18.9 Pneumonia, unspecified organism; J44.0 Chronic obstructive pulmonary disease with (acute) lower respiratory infection; N39.0 Urinary tract infection, site not specified; I10 Essential (primary) hypertension; Z85.118 Personal history of other malignant neoplasm of bronchus and lung; Z88.1 Allergy status to other antibiotic agents; Z87.891 Personal history of nicotine dependence
CPT/HCPCS: 36415; 71045; 71250; 74176; 80053; 81001; 83605; 83735; 83880; 84443; 84484; 85025; 85610; 85730; 87040; 87077; 87086; 87088; 87186; 93005; 94640; 96365; 96367; 99291; G0378

== ENCOUNTER 2024-03-07 18:37 | Inpatient (IN) | payer MEDICARE, OTHER ==
[~2024-03-07] VITALS: Ht 167.6 cm; Wt 67.9 kg
[~2024-03-07 18:37] MED LIST changes: +AMLO1TAB22 PO; +ATOR20TA50 PO; +CARV12.544 PO; +DOXY-447 PO; +HYDR25TA4 PO; +HYDR25TA88 PO; -LEVO750T8 PO; -NISO17TA PO; +PRED20TA2 PO; -SIMV40TA18 PO; -TELM1TAB35 PO
[2024-03-07 20:05] LABS: Hemoglobin 9.2 g/dL (12.2-16.2); Red Cell Distribution Width 16.9 % (11.8-14.3)
[2024-03-07 20:06] LABS: Hematocrit 28.5 % (36.0-46.0); Mean Corpuscular Hemoglobin 27.2 pg (28.0-32.0); Mean Corpuscular Hgb Conc. 32.4 g/dL (32.0-36.0); Mean Corpuscular Volume 83.9 fL (80.0-100.0)
[2024-03-07] MEDS: PIPERACILLIN-TAZOB 3.375GM 100 ML IV ONE (20:06)
[2024-03-07 20:26] LABS: Alanine Aminotransferase 16 U/L (7-40); Albumin 3.2 g/dL (3.2-4.8); Alkaline Phosphatase 136 U/L (46-116); Anion Gap 8 (5-15); Aspartate Aminotransferase 22 U/L (13-40); Band Neutrophils % (manual) 0; Basophils % (manual) 0 (0.0-2.0); Blast Cells 0; Blood Urea Nitrogen 26 mg/dL (9-23); Calcium 7.9 mg/dL (8.5-10.1); Carbon Dioxide 28 mmol/L (20-30); Chloride 102 mmol/L (98-107); Glucose 158 mg/dL (74-106); Magnesium 1.3 mg/dL (1.6-2.6); Metamyelocytes % 0; Myelocytes % 0; Potassium 2.9 mmol/L (3.5-5.1); Promyelocytes % 0; Reactive Lymphocytes 0; Sodium 138 mmol/L (136-145); White Blood Cell 1.3 10^3/uL (4.4-10.8)
[2024-03-07 20:27] LABS: Bilirubin, Total 0.7 mg/dL (0.2-1.0); Total Protein 5.8 g/dL (5.7-8.2)
[2024-03-07 20:32] VITALS: O2SAT 93
[2024-03-07 20:35] LABS: CRP High Sensitivity > 20.00 mg/dL (<1.0)
[2024-03-07] MEDS ORDERED: FILGRASTIM (TBO) 300 MCG/0.5 ML SYRG SC ONE (20:45)
[2024-03-07] MEDS ORDERED: DEXTROSE (50%) 50ML SYRG IV PRN (20:45)
[2024-03-07] MEDS: cefTRIAXone 1GM/50ML D5W 50 ML IV ONE (21:17)
[2024-03-07 21:22] LABS: COVID19 ANTIGEN SOFIA FIA NEGATIVE (NEGATIVE)
[2024-03-07 21:35] LABS: Eosinophils % (manual) 2 (0-7); Lymphocytes % (manual) 60 (10.0-50.0); Monocytes % (manual) 3 (0-12)
[2024-03-07 21:36] LABS: Platelet Estimate Decreased
[2024-03-07 21:38] VITALS: BP 167/65; PULSE 91; RESP 28; TEMP 98.8; O2SAT 93
[2024-03-07] MEDS: MAGNESIUM SULFATE 1GM/100ML 100 ML IV ONE (21:51)
[2024-03-07] MEDS: POTASSIUM CHL 20 Meq TABLET PO ONE (22:05)
[2024-03-07] MEDS: MAGNESIUM OXIDE 400 MG TAB PO ONE (22:05)
[2024-03-07] MEDS: FILGRASTIM(TBO) 480 MCG/0.8 ML SYRG SC ONE (22:05)
[2024-03-07] MEDS: SACUBITRIL-VALSARTAN 24mg/26mg TAB PO SCH (22:19)
[2024-03-07] MEDS: ATORVASTATIN 20 MG TAB PO SCH (22:19)
[2024-03-07] MEDS: CARVEDILOL 12.5 MG TAB PO SCH (22:20)
[2024-03-07] MEDS: hydrALAZINE HCL 25 MG TAB PO SCH (22:20)
[2024-03-07] MEDS: ACCU-CHEK COMFORT CURVE STRIP VI SCH (22:24)
[2024-03-07] MEDS: InsuLIN REG 1unit/0.01ml Soln (100units/ml) SC SCH (22:30)
[2024-03-07 23:59] LABS: Urine Amorphous Crystal FEW /hpf (None Seen); Urine Bacteria FEW /hpf (None Seen); Urine Blood TRACE /uL (Negative); Urine Clarity Turbid (Clear); Urine Color Light-Yellow (Yellow); Urine Mucus FEW (None Seen); Urine Protein, UAD 2+ (Negative); Urine Specific Gravity 1.017 (1.001-1.035); Urine Urobilinogen Normal (Negative); Urine WBC 17 /hpf (0 - 5)
[2024-03-08] VITALS (10 sets, daily range): BP systolic 99–121; BP diastolic 42–70; PULSE 65–81; RESP 18; TEMP 97.4–100.3; O2SAT 88–95
[2024-03-08 06:35] LABS: Anion Gap 6 (5-15); Carbon Dioxide 28 mmol/L (20-30); Chloride 102 mmol/L (98-107); Potassium 3.8 mmol/L (3.5-5.1); Sodium 136 mmol/L (136-145)
[2024-03-08 06:37] LABS: Calcium 7.9 mg/dL (8.5-10.1)
[2024-03-08 06:41] LABS: BUN/Creatinine Ratio 21.6 (10.0-20.0); Blood Urea Nitrogen 22 mg/dL (9-23); Glucose 134 mg/dL (74-106)
[2024-03-08 07:20] LABS: Basophils # (auto) 0 10 ^3/uL (0-0.2); Eosinophils # (auto) 0 10 ^3/uL (0-0.8); Hemoglobin 7.9 g/dL (12.2-16.2); Lymphocytes # (auto) 0.3 10 ^3/uL (0.4-5.4); Mean Corpuscular Hemoglobin 27.4 pg (28.0-32.0); Monocytes # (auto) 0 10 ^3/uL (0-1.3); Neutrophils # (auto) 0.2 10 ^3/uL (1.6-8.6)
[2024-03-08 07:24] LABS: Basophils % (auto) 0.3 % (0.0-2.0); Eosinophils % (auto) 5.3 % (0.0-7.0); Lymphocytes % (auto) 52.6 % (10.0-50.0); Mean Corpuscular Hgb Conc. 32.9 g/dL (32.0-36.0); Mean Corpuscular Volume 83.2 fL (80.0-100.0); Monocytes % (auto) 0.9 % (0.0-12.0); Neutrophils % (auto) 40.9 % (37.0-80.0); Nucleated Red Blood Cells % 0.3 %; Red Blood Cells 2.88 10^6/uL (4.0-5.20); Red Cell Distribution Width 16.9 % (11.8-14.3)
[2024-03-08 07:36] LABS: White Blood Cell 0.6 10^3/uL (4.4-10.8)
[2024-03-08 08:21] LABS: Platelet Estimate Decreased
[2024-03-08] MEDS: ENOXAPARIN SOD 40 MG/0.4 ML SYRINGE SC SCH (08:26)
[2024-03-08] MEDS ORDERED: cefTRIAXone 1GM/50ML D5W 50 ML IV SCH (09:00)
[2024-03-08] MEDS ORDERED: amLODIPine BESYLATE 5 MG TAB PO SCH (10:00)
[2024-03-08] MEDS: POTASSIUM CHLORIDE 40 MEQ, LIDOCAINE 1% (LOCAL ANESTH.) 4 ML in SODIUM CHL 0.9% 250 ML IV ONE (11:00)
[2024-03-08] MEDS: ALBUTEROL SULF 2.5 MG/0.5ML(0.5%) NEB SOLN NEB SCH (11:12)
[2024-03-08] MEDS: IPRATROPIUM BROM 0.5 MG/2.5ML INH SOL NEB SCH (11:12)
[2024-03-08] MEDS: levoFLOXacin 500MG 100 ML IV SCH (11:53)
[2024-03-08] MEDS: FILGRASTIM (TBO) 300 MCG/0.5 ML SYRG SC ONE (11:55)
[2024-03-08] MEDS: ONDANSETRON HCL 4 MG/2 ML VIAL IV PRN (16:29)
[2024-03-09] VITALS (12 sets, daily range): BP systolic 106–155; BP diastolic 51–69; PULSE 61–101; RESP 16–20; TEMP 97.4–99.2; O2SAT 91–99
[2024-03-09] MEDS: ACETAMINOPHEN 325 MG TAB PO PRN (02:32)
[2024-03-09 06:32] LABS: Basophils # (auto) 0 10 ^3/uL (0-0.2); Eosinophils # (auto) 0 10 ^3/uL (0-0.8); Hemoglobin 7.6 g/dL (12.2-16.2); Lymphocytes # (auto) 0.4 10 ^3/uL (0.4-5.4); Monocytes # (auto) 0 10 ^3/uL (0-1.3); Neutrophils # (auto) 0 10 ^3/uL (1.6-8.6); Neutrophils % (auto) 10.2 % (37.0-80.0)
[2024-03-09 06:34] LABS: Eosinophils % (auto) 6.8 % (0.0-7.0); Hematocrit 23.5 % (36.0-46.0); Mean Corpuscular Hemoglobin 27.1 pg (28.0-32.0); Mean Corpuscular Hgb Conc. 32.3 g/dL (32.0-36.0); Mean Corpuscular Volume 83.7 fL (80.0-100.0); Nucleated Red Blood Cells % 0.3 %; Red Blood Cells 2.81 10^6/uL (4.0-5.20); Red Cell Distribution Width 16.5 % (11.8-14.3)
[2024-03-09 06:46] LABS: Alanine Aminotransferase 14 U/L (7-40); Albumin 2.9 g/dL (3.2-4.8); Alkaline Phosphatase 146 U/L (46-116); Anion Gap 7 (5-15); Aspartate Aminotransferase 22 U/L (13-40); BUN/Creatinine Ratio 22.9 (10.0-20.0); Blood Urea Nitrogen 24 mg/dL (9-23); Calcium 7.9 mg/dL (8.5-10.1); Carbon Dioxide 27 mmol/L (20-30); Chloride 103 mmol/L (98-107); Glucose 89 mg/dL (74-106); INR 1.21 (0.9-1.15); Magnesium 1.6 mg/dL (1.6-2.6); Potassium 3.8 mmol/L (3.5-5.1); Prothrombin Time 12.6 sec (9.3-11.8); Sodium 137 mmol/L (136-145)
[2024-03-09 06:47] LABS: Bilirubin, Total 0.6 mg/dL (0.2-1.0); Total Protein 5.4 g/dL (5.7-8.2)
[2024-03-09 07:42] LABS: White Blood Cell 0.5 10^3/uL (4.4-10.8)
[2024-03-09 07:44] LABS: Platelet Estimate Markedly Decreased
[2024-03-09] MEDS: FILGRASTIM (TBO) 300 MCG/0.5 ML SYRG SC SCH (10:26)
[2024-03-09] MEDS ORDERED: CARV25TA55 PO (10:50)
[2024-03-09] MEDS ORDERED: TELM80TA PO (11:04)
[2024-03-09] MEDS ORDERED: TIMO0.5S28 EACHEYE (11:04)
[2024-03-09] MEDS ORDERED: PROC10TA6 PO (11:04)
[2024-03-09] MEDS ORDERED: ONDA-180 PO (11:04)
[2024-03-09] MEDS ORDERED: SACU1TAB PO (11:04)
[2024-03-09] MEDS ORDERED: IPRAAER6 INH (11:04)
[2024-03-09] MEDS ORDERED: PROM2SYP2 PO (11:04)
[2024-03-09] MEDS ORDERED: FOLI-119 PO (11:04)
[2024-03-10] VITALS (15 sets, daily range): BP systolic 123–153; BP diastolic 57–88; PULSE 78–112; RESP 16–20; TEMP 97.7–98.8; O2SAT 91–98
[2024-03-10 06:21] LABS: Basophils # (auto) 0 10 ^3/uL (0-0.2); Eosinophils # (auto) 0 10 ^3/uL (0-0.8); Hemoglobin 7.7 g/dL (12.2-16.2); Lymphocytes # (auto) 0.3 10 ^3/uL (0.4-5.4); Monocytes # (auto) 0 10 ^3/uL (0-1.3); Neutrophils # (auto) 0 10 ^3/uL (1.6-8.6)
[2024-03-10 06:23] LABS: Eosinophils % (auto) 7.5 % (0.0-7.0); Hematocrit 23.3 % (36.0-46.0); Mean Corpuscular Hemoglobin 27.6 pg (28.0-32.0); Mean Corpuscular Volume 83.6 fL (80.0-100.0); Monocytes % (auto) 11.8 % (0.0-12.0); Neutrophils % (auto) 3.9 % (37.0-80.0); Nucleated Red Blood Cells % 2.6 %; Red Blood Cells 2.79 10^6/uL (4.0-5.20); Red Cell Distribution Width 16.6 % (11.8-14.3)
[2024-03-10 06:36] LABS: Anion Gap 6 (5-15); Carbon Dioxide 26 mmol/L (20-30); Chloride 102 mmol/L (98-107); Potassium 3.4 mmol/L (3.5-5.1); Sodium 134 mmol/L (136-145)
[2024-03-10 06:38] LABS: Calcium 8.4 mg/dL (8.7-10.4)
[2024-03-10 06:42] LABS: BUN/Creatinine Ratio 18.9 (10.0-20.0); Blood Urea Nitrogen 17 mg/dL (9-23); Glucose 129 mg/dL (74-106)
[2024-03-10 07:05] LABS: Lymphocytes % (auto) 76.8 % (10.0-50.0)
[2024-03-10 07:15] LABS: White Blood Cell 0.4 10^3/uL (4.4-10.8)
[2024-03-10 09:47] LABS: Platelet Estimate Markedly Decreased
[2024-03-10] MEDS: HYDROcodone-ACET 5/325MG TAB PO PRN (23:44)
[2024-03-11] VITALS (23 sets, daily range): BP systolic 121–149; BP diastolic 55–85; PULSE 80–125; RESP 16–20; TEMP 97.7–98.6; O2SAT 91–100
[2024-03-11 07:22] LABS: Basophils # (auto) 0 10 ^3/uL (0-0.2); Eosinophils # (auto) 0 10 ^3/uL (0-0.8); Hemoglobin 7.9 g/dL (12.2-16.2); Lymphocytes # (auto) 0.4 10 ^3/uL (0.4-5.4); Monocytes # (auto) 0.1 10 ^3/uL (0-1.3); Neutrophils # (auto) 0 10 ^3/uL (1.6-8.6); Nucleated Red Blood Cells % 0.6 %
[2024-03-11 07:25] LABS: Basophils % (auto) 0.3 % (0.0-2.0); Eosinophils % (auto) 2.8 % (0.0-7.0); Hematocrit 24.1 % (36.0-46.0); Mean Corpuscular Hemoglobin 27.3 pg (28.0-32.0); Mean Corpuscular Hgb Conc. 32.9 g/dL (32.0-36.0); Mean Corpuscular Volume 82.9 fL (80.0-100.0); Neutrophils % (auto) 4.4 % (37.0-80.0); Red Blood Cells 2.91 10^6/uL (4.0-5.20); Red Cell Distribution Width 16.4 % (11.8-14.3)
[2024-03-11 07:36] LABS: Anion Gap 7 (5-15); Carbon Dioxide 29 mmol/L (20-30); Chloride 100 mmol/L (98-107); Potassium 3.3 mmol/L (3.5-5.1); Sodium 136 mmol/L (136-145)
[2024-03-11 07:37] LABS: Calcium 8.4 mg/dL (8.5-10.1)
[2024-03-11 07:42] LABS: BUN/Creatinine Ratio 19.3 (10.0-20.0); Blood Urea Nitrogen 16 mg/dL (9-23); Glucose 88 mg/dL (74-106)
[2024-03-11 07:44] LABS: Lymphocytes % (auto) 70.3 % (10.0-50.0); Monocytes % (auto) 22.2 % (0.0-12.0)
[2024-03-11 07:47] LABS: White Blood Cell 0.5 10^3/uL (4.4-10.8)
[2024-03-11 08:50] LABS: Anisocytosis Slight; Platelet Estimate Markedly Decreased
[2024-03-11] MEDS: POTASSIUM CHL 20 Meq TABLET PO ONE (10:35)
[2024-03-11] MEDS: ALBUTEROL SULF 2.5 MG/0.5ML(0.5%) NEB SOLN NEB PRN (14:35)
[2024-03-11] MEDS: TEMAZEPAM 15 MG CAP PO PRN (23:28)
[2024-03-12] VITALS (14 sets, daily range): BP systolic 112–148; BP diastolic 43–70; PULSE 80–117; RESP 16–20; TEMP 97.7–98.6; O2SAT 90–100
[2024-03-12 06:20] LABS: Basophils # (auto) 0 10 ^3/uL (0-0.2); Eosinophils # (auto) 0 10 ^3/uL (0-0.8); Lymphocytes # (auto) 0.3 10 ^3/uL (0.4-5.4); Monocytes # (auto) 0.2 10 ^3/uL (0-1.3); Neutrophils # (auto) 0.2 10 ^3/uL (1.6-8.6)
[2024-03-12 06:24] LABS: Basophils % (auto) 0.5 % (0.0-2.0); Hemoglobin 7.4 g/dL (12.2-16.2); Lymphocytes % (auto) 36.8 % (10.0-50.0); Mean Corpuscular Hemoglobin 27.3 pg (28.0-32.0); Mean Corpuscular Hgb Conc. 32.2 g/dL (32.0-36.0); Mean Corpuscular Volume 84.7 fL (80.0-100.0); Neutrophils % (auto) 32.5 % (37.0-80.0); Nucleated Red Blood Cells % 0.2 %; Red Blood Cells 2.72 10^6/uL (4.0-5.20); Red Cell Distribution Width 16.5 % (11.8-14.3)
[2024-03-12 06:41] LABS: Chloride 102 mmol/L (98-107); Potassium 3.9 mmol/L (3.5-5.1); Sodium 136 mmol/L (136-145)
[2024-03-12 06:42] LABS: Anion Gap 5 (5-15); Calcium 8.6 mg/dL (8.5-10.1); Carbon Dioxide 29 mmol/L (20-30)
[2024-03-12 06:47] LABS: BUN/Creatinine Ratio 16.5 (10.0-20.0); Blood Urea Nitrogen 17 mg/dL (9-23); Glucose 99 mg/dL (74-106)
[2024-03-12 07:01] LABS: Monocytes % (auto) 28.2 % (0.0-12.0); White Blood Cell 0.7 10^3/uL (4.4-10.8)
[2024-03-12] MEDS: DOCUSATE SOD 100 MG CAP PO SCH (09:11)
[2024-03-13] VITALS (16 sets, daily range): BP systolic 108–165; BP diastolic 50–82; PULSE 68–117; RESP 16–22; TEMP 97.5–98.3; O2SAT 90–100
[2024-03-13 06:53] LABS: Basophils # (auto) 0 10 ^3/uL (0-0.2); Basophils % (auto) 0.1 % (0.0-2.0); Eosinophils # (auto) 0 10 ^3/uL (0-0.8); Lymphocytes # (auto) 0.3 10 ^3/uL (0.4-5.4); Monocytes # (auto) 0.3 10 ^3/uL (0-1.3); Neutrophils # (auto) 1.3 10 ^3/uL (1.6-8.6); Red Blood Cells 2.73 10^6/uL (4.0-5.20)
[2024-03-13 06:55] LABS: Eosinophils % (auto) 0.3 % (0.0-7.0); Hematocrit 23.2 % (36.0-46.0); Hemoglobin 7.3 g/dL (12.2-16.2); Lymphocytes % (auto) 16.7 % (10.0-50.0); Mean Corpuscular Hemoglobin 26.8 pg (28.0-32.0); Mean Corpuscular Hgb Conc. 31.5 g/dL (32.0-36.0); Mean Corpuscular Volume 85.2 fL (80.0-100.0); Monocytes % (auto) 16.5 % (0.0-12.0); Neutrophils % (auto) 66.4 % (37.0-80.0); Nucleated Red Blood Cells % 0.2 %; Red Cell Distribution Width 16.8 % (11.8-14.3)
[2024-03-13 07:01] LABS: Anion Gap 8 (5-15); Carbon Dioxide 28 mmol/L (20-30); Chloride 101 mmol/L (98-107); Potassium 3.6 mmol/L (3.5-5.1); Sodium 137 mmol/L (136-145)
[2024-03-13 07:03] LABS: Calcium 8.6 mg/dL (8.7-10.4)
[2024-03-13 07:07] LABS: BUN/Creatinine Ratio 18.3 (10.0-20.0); Blood Urea Nitrogen 19 mg/dL (9-23); Glucose 94 mg/dL (74-106)
[2024-03-13 08:09] LABS: White Blood Cell 1.9 10^3/uL (4.4-10.8)
[2024-03-13] MEDS: POTASSIUM CHL 20 Meq TABLET PO ONE (12:16)
[2024-03-13] MEDS: FUROSEMIDE 20 MG TAB PO ONE (12:16)
[2024-03-13] MEDS: FOLIC ACID 1 MG TAB PO ONE (12:16)
[2024-03-13] MEDS: LACTULOSE 20Gm/30ML SOLN PO ONE (12:17)
[2024-03-13] MEDS: DOCUSATE SOD 100 MG CAP PO ONE (12:17)
[2024-03-13] MEDS: Ensure HIGH Protein Chocolate 8oz Bottle PO SCH (15:23)
[2024-03-14] VITALS (16 sets, daily range): BP systolic 98–145; BP diastolic 52–97; PULSE 67–107; RESP 16–21; TEMP 97.5–98.2; O2SAT 92–100
[2024-03-14 05:48] LABS: Anion Gap 9 (5-15); Carbon Dioxide 30 mmol/L (20-30); Chloride 101 mmol/L (98-107); Potassium 3.7 mmol/L (3.5-5.1); Sodium 140 mmol/L (136-145)
[2024-03-14 05:49] LABS: Calcium 9.3 mg/dL (8.5-10.1)
[2024-03-14 05:54] LABS: BUN/Creatinine Ratio 21.4 (10.0-20.0); Blood Urea Nitrogen 27 mg/dL (9-23); Glucose 96 mg/dL (74-106)
[2024-03-14 05:55] LABS: Magnesium 1.5 mg/dL (1.6-2.6)
[2024-03-14 06:21] LABS: Hematocrit 24.2 % (36.0-46.0); Mean Corpuscular Hemoglobin 27.6 pg (28.0-32.0); Mean Corpuscular Volume 83.5 fL (80.0-100.0); Red Cell Distribution Width 16.4 % (11.8-14.3); White Blood Cell 4.8 10^3/uL (4.4-10.8)
[2024-03-14 06:37] LABS: Basophils % (manual) 0 (0.0-2.0); Eosinophils % (manual) 0 (0-7); Metamyelocytes % 0; Myelocytes % 0; Promyelocytes % 0; Reactive Lymphocytes 0
[2024-03-14 08:28] LABS: Band Neutrophils % (manual) 18; Blast Cells 1; Lymphocytes % (manual) 11 (10.0-50.0); Monocytes % (manual) 8 (0-12)
[2024-03-14 08:29] LABS: Platelet Estimate Markedly Decreased
[2024-03-14] MEDS: FOLIC ACID 1 MG TAB PO SCH (10:25)
[2024-03-14] MEDS: POTASSIUM CHL 20 Meq TABLET PO SCH (10:26)
[2024-03-14] MEDS: FUROSEMIDE 20 MG TAB PO SCH (10:27)
[2024-03-14] MEDS ORDERED: ALBU1NEB5 IN (10:59)
[2024-03-14] MEDS ORDERED: LEVO500T91 PO (10:59)
[2024-03-14] MEDS ORDERED: PRED10TA PO (10:59)
[2024-03-14] MEDS ORDERED: methylPREDNISolone SOD SUCC 125 MG/2 ML VL IV ONE (13:15)
[2024-03-14] MEDS: methylPREDNISolone SOD SUCC 125 MG/2 ML VL IV ONE (14:28)
[2024-03-14] MEDS: methylPREDNISolone SOD SUCC 40 MG/ML VL IV SCH (21:54)
[2024-03-14] MEDS ORDERED: methylPREDNISolone SOD SUCC 40 MG/ML VL IV SCH (22:00)
[2024-03-15] VITALS (19 sets, daily range): BP systolic 102–153; BP diastolic 52–76; PULSE 84–109; RESP 16–20; TEMP 97.3–98.3; O2SAT 92–100
[2024-03-15 05:38] LABS: Basophils # (auto) 0 10 ^3/uL (0-0.2); Eosinophils # (auto) 0 10 ^3/uL (0-0.8); Lymphocytes # (auto) 0.6 10 ^3/uL (0.4-5.4); Red Cell Distribution Width 16.6 % (11.8-14.3)
[2024-03-15 05:44] LABS: Basophils % (auto) 0.1 % (0.0-2.0); Hematocrit 21.8 % (36.0-46.0); Hemoglobin 7.1 g/dL (12.2-16.2); Lymphocytes % (auto) 9.5 % (10.0-50.0); Mean Corpuscular Hemoglobin 27.2 pg (28.0-32.0); Mean Corpuscular Hgb Conc. 32.6 g/dL (32.0-36.0); Mean Corpuscular Volume 83.4 fL (80.0-100.0); Monocytes # (auto) 0.3 10 ^3/uL (0-1.3); Monocytes % (auto) 5.1 % (0.0-12.0); Neutrophils # (auto) 5.1 10 ^3/uL (1.6-8.6); Neutrophils % (auto) 85.3 % (37.0-80.0); Red Blood Cells 2.62 10^6/uL (4.0-5.20)
[2024-03-15 05:52] LABS: Albumin 3.1 g/dL (3.2-4.8); Alkaline Phosphatase 147 U/L (46-116); Anion Gap 7 (5-15); Aspartate Aminotransferase 17 U/L (13-40); BUN/Creatinine Ratio 25.2 (10.0-20.0); Bilirubin, Total 0.4 mg/dL (0.2-1.0); Blood Urea Nitrogen 34 mg/dL (9-23); Calcium 9.2 mg/dL (8.5-10.1); Carbon Dioxide 31 mmol/L (20-30); Chloride 102 mmol/L (98-107); Glucose 165 mg/dL (74-106); Potassium 4.6 mmol/L (3.5-5.1); Sodium 140 mmol/L (136-145); Total Protein 5.6 g/dL (5.7-8.2)
[2024-03-15 05:53] LABS: Alanine Aminotransferase 9 U/L (7-40)
[2024-03-15 06:19] LABS: Platelet Estimate Markedly Decreased
[2024-03-16] VITALS (14 sets, daily range): BP systolic 128–147; BP diastolic 61–74; PULSE 74–96; RESP 16–20; TEMP 97.3–98; O2SAT 92–100
[2024-03-16 08:02] LABS: Basophils # (auto) 0 10 ^3/uL (0-0.2); Basophils % (auto) 0.1 % (0.0-2.0); Eosinophils # (auto) 0 10 ^3/uL (0-0.8); Hemoglobin 8.9 g/dL (12.2-16.2); White Blood Cell 9.5 10^3/uL (4.4-10.8)
[2024-03-16 08:04] LABS: Hematocrit 27.2 % (36.0-46.0); Lymphocytes % (auto) 10.5 % (10.0-50.0); Mean Corpuscular Hgb Conc. 32.8 g/dL (32.0-36.0); Mean Corpuscular Volume 85.3 fL (80.0-100.0); Monocytes # (auto) 0.6 10 ^3/uL (0-1.3); Monocytes % (auto) 6.4 % (0.0-12.0); Neutrophils # (auto) 7.9 10 ^3/uL (1.6-8.6); Nucleated Red Blood Cells % 0.1 %; Red Blood Cells 3.19 10^6/uL (4.0-5.20); Red Cell Distribution Width 16.8 % (11.8-14.3)
[2024-03-16 08:05] LABS: Chloride 105 mmol/L (98-107); Potassium 4.2 mmol/L (3.5-5.1); Sodium 141 mmol/L (136-145)
[2024-03-16 08:06] LABS: Anion Gap 4 (5-15); Carbon Dioxide 32 mmol/L (20-30)
[2024-03-16 08:11] LABS: BUN/Creatinine Ratio 28.8 (10.0-20.0); Blood Urea Nitrogen 40 mg/dL (9-23); Glucose 138 mg/dL (74-106)
[2024-03-16 11:52] LABS: Base Excess 7.1 mmol/L (-2.0-2.0)
[2024-03-16] MEDS: PIPERACILLIN-TAZOB 3.375GM 100 ML IV ONE (12:33)
[2024-03-16] MEDS: MORPHINE SULFATE INJ 2 MG/ml SYRG IV PRN (12:33)
[2024-03-16] MEDS: PANTOPRAZOLE 40 MG/10 ML VIAL INJ IV ONE (15:12)
[2024-03-16 15:55] LABS: Magnesium 1.8 mg/dL (1.6-2.6)
[2024-03-16 15:57] LABS: Phosphorus 3.4 mg/dL (2.4-5.1)
[2024-03-16] MEDS: PIPERACILLIN-TAZOB 3.375GM 100 ML IV SCH (20:23)
[2024-03-16] MEDS: TEMAZEPAM 15 MG CAP PO PRN (21:14)
[2024-03-17] VITALS (13 sets, daily range): BP systolic 103–147; BP diastolic 65–78; PULSE 63–90; RESP 14–18; TEMP 97.4–98.1; O2SAT 92–100
[2024-03-17 02:22] LABS: Urine Bacteria None Seen /hpf (None Seen)
[2024-03-17 02:34] LABS: Urine Blood 2+ /uL (Negative); Urine Clarity Turbid (Clear); Urine Color Yellow (Yellow); Urine Protein, UAD 1+ (Negative); Urine Specific Gravity 1.023 (1.001-1.035); Urine Urobilinogen Normal (Negative); Urine WBC 14 /hpf (0 - 5); Urine pH 5.5 (5.0-9.0)
[2024-03-17 03:03] LABS: Protein, Urine 70.1 mg/dL (0.0-11.9)
[2024-03-17 03:06] LABS: Creatinine, Urine 82.2 mg/dL (30.0-125.0); Urine Protein/Creatinine Ratio 0.85
[2024-03-17 06:19] LABS: Hematocrit 24.5 % (36.0-46.0); Hemoglobin 8.2 g/dL (12.2-16.2); Mean Corpuscular Hemoglobin 28.5 pg (28.0-32.0); Mean Corpuscular Hgb Conc. 33.5 g/dL (32.0-36.0); Mean Corpuscular Volume 85.3 fL (80.0-100.0); Red Blood Cells 2.88 10^6/uL (4.0-5.20); Red Cell Distribution Width 16.8 % (11.8-14.3); White Blood Cell 8.5 10^3/uL (4.4-10.8)
[2024-03-17 06:24] LABS: Basophils % (manual) 0 (0.0-2.0); Blast Cells 0; Eosinophils % (manual) 0 (0-7); Metamyelocytes % 0; Myelocytes % 0; Promyelocytes % 0; Reactive Lymphocytes 0
[2024-03-17 06:31] LABS: Chloride 104 mmol/L (98-107); Potassium 4.5 mmol/L (3.5-5.1); Sodium 142 mmol/L (136-145)
[2024-03-17 06:32] LABS: Anion Gap 5 (5-15); Calcium 8.7 mg/dL (8.5-10.1); Carbon Dioxide 33 mmol/L (20-30)
[2024-03-17 06:37] LABS: BUN/Creatinine Ratio 36.9 (10.0-20.0); Glucose 134 mg/dL (74-106)
[2024-03-17 06:45] LABS: Blood Urea Nitrogen 52 mg/dL (9-23)
[2024-03-17 07:31] LABS: Anisocytosis Slight; Band Neutrophils % (manual) 5; Lymphocytes % (manual) 8 (10.0-50.0); Monocytes % (manual) 8 (0-12); Platelet Estimate Markedly Decreased
[2024-03-17] MEDS: PANTOPRAZOLE 40 MG/10 ML VIAL INJ IV SCH (10:19)
[2024-03-17] MEDS: ACETYLCYSTEINE 10 %(100MG/ML) SOL 4ML NEB SCH (14:00)
[2024-03-17] MEDS: ENSURE CLEAR Mixed Berry 8oz Carton PO SCH (15:59)
[2024-03-17] MEDS: LACTULOSE 20Gm/30ML SOLN PO SCH (15:59)
[2024-03-17] MEDS: SODIUM CHLORIDE 0.9% 1,000 ML IV ONE (18:59)
[2024-03-18] VITALS (12 sets, daily range): BP systolic 131–147; BP diastolic 63–79; PULSE 80–98; RESP 14–18; TEMP 97.5–98; O2SAT 91–99
[2024-03-19] VITALS (18 sets, daily range): BP systolic 113–160; BP diastolic 65–73; PULSE 70–110; RESP 12–20; TEMP 85–98.3; O2SAT 91–100
[2024-03-19] MEDS: hydrALAZINE HCL 20 MG/ML VL IV PRN (14:14)
[2024-03-20] VITALS (15 sets, daily range): BP systolic 124–179; BP diastolic 68–89; PULSE 92–136; RESP 16–23; TEMP 97–98.5; O2SAT 90–100
[2024-03-20 05:59] LABS: Anion Gap 5 (5-15); Carbon Dioxide 34 mmol/L (20-30); Chloride 104 mmol/L (98-107); Potassium 3.1 mmol/L (3.5-5.1); Sodium 143 mmol/L (136-145)
[2024-03-20 06:00] LABS: Calcium 8.3 mg/dL (8.5-10.1)
[2024-03-20 06:05] LABS: Blood Urea Nitrogen 30 mg/dL (9-23); Glucose 196 mg/dL (74-106)
[2024-03-20] MEDS: POTASSIUM EFFERVESENT TAB 25 MEQ PO ONE (17:27)
[2024-03-21] VITALS (14 sets, daily range): BP systolic 142–165; BP diastolic 73–86; PULSE 83–114; RESP 16–22; TEMP 97.8–98.4; O2SAT 92–99
[2024-03-21 05:33] LABS: Chloride 105 mmol/L (98-107); Sodium 143 mmol/L (136-145)
[2024-03-21 05:34] LABS: Anion Gap 3 (5-15); Calcium 8.4 mg/dL (8.7-10.4); Carbon Dioxide 35 mmol/L (20-30)
[2024-03-21 05:39] LABS: BUN/Creatinine Ratio 25.3 (10.0-20.0); Blood Urea Nitrogen 23 mg/dL (9-23); Glucose 106 mg/dL (74-106)
[2024-03-21 05:57] LABS: Red Cell Distribution Width 17.1 % (11.8-14.3)
[2024-03-21 06:02] LABS: Hematocrit 22.9 % (36.0-46.0); Hemoglobin 7.4 g/dL (12.2-16.2); Mean Corpuscular Hemoglobin 27.2 pg (28.0-32.0); Mean Corpuscular Hgb Conc. 32.3 g/dL (32.0-36.0); Mean Corpuscular Volume 84.2 fL (80.0-100.0); Red Blood Cells 2.71 10^6/uL (4.0-5.20); White Blood Cell 26.2 10^3/uL (4.4-10.8)
[2024-03-21 06:24] LABS: Basophils % (manual) 0 (0.0-2.0); Blast Cells 0; Eosinophils % (manual) 0 (0-7); Promyelocytes % 0; Reactive Lymphocytes 0
[2024-03-21] MEDS: PANTOPRAZOLE 40 MG TAB PO SCH (06:38)
[2024-03-21 08:07] LABS: Band Neutrophils % (manual) 9; Lymphocytes % (manual) 17 (10.0-50.0); Metamyelocytes % 6; Monocytes % (manual) 8 (0-12); Myelocytes % 3; Platelet Estimate Decreased
[2024-03-21] MEDS: POTASSIUM EFFERVESENT TAB 25 MEQ PO ONE (10:01)
[2024-03-21] MEDS: levoFLOXacin 500 MG TAB PO SCH (10:02)
[2024-03-21] MEDS: predniSONE 20 MG TAB PO SCH (10:02)
== END 2024-03-21 20:57 | disposition home health service (06) | DRG 808 ==
LOC: ER 18:37 → OVERFLOW 20:41 → EAST 03-08 04:23
PROVIDERS: ADMIT Nurse Practitioner; ATTEND Internal Medicine
PROC: 30233R1 Transfusion of Nonautologous Platelets into Peripheral Vein, Percutaneous Approach (ICD-10-PCS; principal; 2024-03-11)
PROC: 30233N1 Transfusion of Nonautologous Red Blood Cells into Peripheral Vein, Percutaneous Approach (ICD-10-PCS; 2024-03-15)
DX: D61.810 Antineoplastic chemotherapy induced pancytopenia (principal); A41.9 Sepsis, unspecified organism; J96.21 Acute and chronic respiratory failure with hypoxia; J18.8 Other pneumonia, unspecified organism; J44.1 Chronic obstructive pulmonary disease with (acute) exacerbation; I50.32 Chronic diastolic (congestive) heart failure; N17.9 Acute kidney failure, unspecified; J44.0 Chronic obstructive pulmonary disease with (acute) lower respiratory infection; C34.90 Malignant neoplasm of unspecified part of unspecified bronchus or lung; E83.42 Hypomagnesemia; Z20.822 Contact with and (suspected) exposure to COVID-19; E87.6 Hypokalemia; I71.9 Aortic aneurysm of unspecified site, without rupture; D69.6 Thrombocytopenia, unspecified; I11.0 Hypertensive heart disease with heart failure; K59.00 Constipation, unspecified; Z88.1 Allergy status to other antibiotic agents; Z82.0 Family history of epilepsy and other diseases of the nervous system; Z82.3 Family history of stroke; Z99.81 Dependence on supplemental oxygen; Y92.89 Other specified places as the place of occurrence of the external cause
CPT/HCPCS: 36415; 36600; 70450; 71045; 76775; 80048; 80053; 81001; 82306; 82570; 82805; 82962; 83605; 83735; 83880; 84100; 84156; 84300; 84484; 84550; 85007; 85025; 85027; 85610; 85730; 86141; 86850; 86900; 86901; 86920; 87040; 87081; 87086; 87426; 93306; 94640; 96365; 96366; 96367; 96372; 97110; 97116; 97163; 97164; 97530; C9113; G0378; J1447; J1815; J1956; J2001; J2405; J2470; J2543

== ENCOUNTER 2024-03-22 01:39 | Inpatient (IN) | payer MEDICARE, OTHER ==
[2024-03-22] VITALS (8 sets, daily range): BP systolic 140–157; BP diastolic 64–82; PULSE 79–108; RESP 16–21; TEMP 97.3–98; O2SAT 92–99
[~2024-03-22] VITALS: Ht 160 cm; Wt 65.1 kg
[~2024-03-22 01:39] MED LIST changes: +ALBU1NEB5 IN; -CARV12.544 PO; +CARV25TA55 PO; -DOXY-447 PO; +FOLI-119 PO; -IBUP1TAB5 PO; +IPRAAER6 INH; +LEVO500T91 PO; +ONDA-180 PO; +PRED10TA PO; -PRED20TA2 PO; +PROC10TA6 PO; +PROM2SYP2 PO; +SACU1TAB PO; +TELM80TA PO; +TIMO0.5S28 EACHEYE
[2024-03-22 03:01] LABS: Hemoglobin 8.1 g/dL (12.2-16.2)
[2024-03-22 03:03] LABS: Mean Corpuscular Hemoglobin 27.1 pg (28.0-32.0); Mean Corpuscular Hgb Conc. 32.3 g/dL (32.0-36.0); Mean Corpuscular Volume 83.9 fL (80.0-100.0); Red Blood Cells 2.98 10^6/uL (4.0-5.20); Red Cell Distribution Width 17.5 % (11.8-14.3)
[2024-03-22 03:09] LABS: White Blood Cell 35.2 10^3/uL (4.4-10.8)
[2024-03-22 03:11] LABS: Basophils % (manual) 0 (0.0-2.0); Blast Cells 0; Eosinophils % (manual) 0 (0-7); Promyelocytes % 0; Reactive Lymphocytes 0
[2024-03-22] MEDS: SODIUM CHLORIDE 0.9% 1,000 ML IV ONE (03:16)
[2024-03-22 03:22] LABS: Alanine Aminotransferase 12 U/L (7-40); Alkaline Phosphatase 114 U/L (46-116); Anion Gap 6 (5-15); Aspartate Aminotransferase 29 U/L (13-40); BUN/Creatinine Ratio 24.2 (10.0-20.0); Bilirubin, Total 0.6 mg/dL (0.2-1.0); Blood Urea Nitrogen 22 mg/dL (9-23); Calcium 8.3 mg/dL (8.7-10.4); Carbon Dioxide 33 mmol/L (20-30); Chloride 103 mmol/L (98-107); Glucose 165 mg/dL (74-106); Potassium 3.2 mmol/L (3.5-5.1); Sodium 142 mmol/L (136-145); Total Protein 5.6 g/dL (5.7-8.2)
[2024-03-22] MEDS: levoFLOXacin 500MG 100 ML IV ONE (04:12)
[2024-03-22 04:25] LABS: Band Neutrophils % (manual) 10; Lymphocytes % (manual) 5 (10.0-50.0); Metamyelocytes % 3; Monocytes % (manual) 9 (0-12); Myelocytes % 5; Smudge Cells 2 /100 WBC
[2024-03-22 04:26] LABS: Anisocytosis Slight; Platelet Estimate Adequate
[2024-03-22] MEDS: POTASSIUM EFFERVESENT TAB 25 MEQ PO ONE ×2 (04:48→13:43)
[2024-03-22] MEDS ORDERED: NITROGLYCERIN 0.4 MG SL TAB SL PRN (07:15)
[2024-03-22] MEDS ORDERED: ACETAMINOPHEN 325 MG TAB PO PRN (07:15)
[2024-03-22] MEDS: CARVEDILOL 12.5 MG TAB PO SCH (10:41)
[2024-03-22] MEDS: SACUBITRIL-VALSARTAN 24mg/26mg TAB PO SCH (10:41)
[2024-03-22] MEDS: amLODIPine BESYLATE 5 MG TAB PO SCH (10:41)
[2024-03-22 10:57] LABS: Urine Bacteria None Seen /hpf (None Seen)
[2024-03-22 11:18] LABS: Urine Blood Negative /uL (Negative); Urine Clarity Clear (Clear); Urine Color Light-Yellow (Yellow); Urine Mucus FEW (None Seen); Urine Protein, UAD TRACE (Negative); Urine Specific Gravity 1.011 (1.001-1.035); Urine Urobilinogen Normal (Negative); Urine WBC 1 /hpf (0 - 5); Urine pH 7.5 (5.0-9.0)
[2024-03-22] MEDS: predniSONE 20 MG TAB PO ONE (13:42)
[2024-03-22] MEDS: hydrALAZINE HCL 25 MG TAB PO SCH (13:43)
[2024-03-22] MEDS: ATORVASTATIN 20 MG TAB PO SCH (21:25)
[2024-03-23] VITALS (13 sets, daily range): BP systolic 118–149; BP diastolic 62–89; PULSE 88–110; RESP 18–22; TEMP 97.3–98.7; O2SAT 91–98
[2024-03-23 06:04] LABS: Hematocrit 25.2 % (36.0-46.0); Hemoglobin 8.1 g/dL (12.2-16.2); Mean Corpuscular Hemoglobin 26.8 pg (28.0-32.0); Mean Corpuscular Hgb Conc. 31.9 g/dL (32.0-36.0); Mean Corpuscular Volume 83.9 fL (80.0-100.0); Red Blood Cells 3.01 10^6/uL (4.0-5.20); Red Cell Distribution Width 17.6 % (11.8-14.3)
[2024-03-23 06:22] LABS: White Blood Cell 33.6 10^3/uL (4.4-10.8)
[2024-03-23 06:23] LABS: Alanine Aminotransferase 11 U/L (7-40); Alkaline Phosphatase 103 U/L (46-116); Anion Gap 9 (5-15); Aspartate Aminotransferase 24 U/L (13-40); Basophils % (manual) 0 (0.0-2.0); Bilirubin, Total 0.5 mg/dL (0.2-1.0); Blood Urea Nitrogen 18 mg/dL (9-23); Calcium 8.2 mg/dL (8.7-10.4); Carbon Dioxide 30 mmol/L (20-30); Chloride 101 mmol/L (98-107); Eosinophils % (manual) 0 (0-7); Glucose 72 mg/dL (74-106); Potassium 3.4 mmol/L (3.5-5.1); Promyelocytes % 0; Reactive Lymphocytes 0; Sodium 140 mmol/L (136-145)
[2024-03-23 06:24] LABS: Blast Cells 0
[2024-03-23 07:04] LABS: Total Protein 5.6 g/dL (5.7-8.2)
[2024-03-23 08:38] LABS: Band Neutrophils % (manual) 4; Lymphocytes % (manual) 8 (10.0-50.0); Metamyelocytes % 1; Monocytes % (manual) 3 (0-12); Myelocytes % 2; Platelet Estimate Adequate
[2024-03-23] MEDS: predniSONE 20 MG TAB PO SCH (10:09)
[2024-03-23] MEDS: levoFLOXacin 500MG 100 ML IV SCH (10:10)
[2024-03-23] MEDS ORDERED: PRED1SUS4 EACHEYE (12:08)
[2024-03-23] MEDS: ONDANSETRON HCL 4 MG/2 ML VIAL IV PRN (15:07)
[2024-03-23] MEDS: IPRATROPIUM BROM 0.5 MG/2.5ML INH SOL NEB PRN (22:08)
[2024-03-23] MEDS: ALBUTEROL SULF 2.5 MG/0.5ML(0.5%) NEB SOLN NEB PRN (22:08)
[2024-03-23] MEDS: MORPHINE SULFATE INJ 2 MG/ml SYRG IV PRN (22:30)
[2024-03-24] VITALS (10 sets, daily range): BP systolic 93–116; BP diastolic 50–67; PULSE 69–96; RESP 16–20; TEMP 36.4; O2SAT 90–100
[2024-03-24] MEDS: MELATONIN 5 MG TAB PO ONE (00:40)
[2024-03-24] MEDS: HYDROcodone-ACET 5/325MG TAB PO PRN (01:22)
[2024-03-25] MEDS ORDERED: levoFLOXacin 250MG 50 ML IV SCH (10:00)
== END 2024-03-24 20:13 | disposition hospice, home (50) | DRG 189 ==
LOC: EDBD 01:39 → ER 01:39 → TELE 07:17 → TELE-CENTR 12:03
PROVIDERS: ADMIT Nurse Practitioner; ATTEND Nurse Practitioner Acute Care
DX: J96.21 Acute and chronic respiratory failure with hypoxia (principal); J44.1 Chronic obstructive pulmonary disease with (acute) exacerbation; I50.32 Chronic diastolic (congestive) heart failure; D61.818 Other pancytopenia; C34.90 Malignant neoplasm of unspecified part of unspecified bronchus or lung; I11.0 Hypertensive heart disease with heart failure; I71.9 Aortic aneurysm of unspecified site, without rupture; E11.9 Type 2 diabetes mellitus without complications; Z88.8 Allergy status to other drugs, medicaments and biological substances; Z88.1 Allergy status to other antibiotic agents
CPT/HCPCS: 36415; 71045; 80053; 81001; 82962; 83605; 85007; 85027; 85379; 87040; 87081; 87086; 93005; 94640; G0378; J1956; J2405